=== PATIENT | male | born 2000 | race Caucasian/White ===

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

== ENCOUNTER 2021-08-29 21:44 | Emergency (ER) | payer OTHER, BC ==
[2021-08-29 21:52] VITALS: BP 123/78; PULSE 80
[2021-08-29] MEDS ORDERED: Sodium Chloride 0.9% 10 ML Syringe FLUSH PRN (22:23)
[2021-08-29] MEDS ORDERED: Sodium Chloride 0.9% 1,000 ML IV SCH (22:30)
== END 2021-08-30 00:51 | disposition home or self-care (01) ==
LOC: JD.ED 21:44
DX: A08.4 Viral intestinal infection, unspecified (principal)
CPT/HCPCS: 36415; 80053; 81001; 83690; 83735; 85025; 86140; 99284; J3490; J7030